=== PATIENT | female | born 1950 | race Caucasian/White ===

== ENCOUNTER 2018-08-06 18:40 | Emergency (ER) | payer MEDICARE, SELFPAY ==
[2018-08-06 19:00] VITALS: BP 148/87; PULSE 89; RESP 16; TEMP 36.6; O2SAT 99
--- NOTE | 2018-08-06 19:03 | ED_ITS ---
HPI - URI/Sore Throat <Joy Avendano PA-C - Last Filed: 08/06/18 22:04> General Chief Complaint: Upper Respiratory Symptoms Stated Complaint: coughing,wheezing Time Seen by Provider: 08/06/18 19:02 Source: patient Mode of arrival: ambulatory Limitations: no limitations History of Present Illness HPI Narrative: This 68-year-old female comes to ED secondary to persistent cough and wheeze. She states that last month, she was treated for pneumonia (she lives in [place]). She was feeling better, and came here to visit arriving 1 week ago today. She was feeling fine for the 1st couple of days, then started having productive cough again on Wednesday and friends noticed she had some wheeze on Wednesday. She states that she had some chills on Wednesday and maybe Wednesday, no temperatures taken. She was seen at a walk-in clinic on Wednesday and prescribed a Z-Bhargav and some codeine cough syrup. She also has an inhaler, but a chest x-ray was not done. She has continued to have cough and wheeze a nurse practitioner there advised her to have chest x-ray. She denies any sinus symptoms, sore throat, or congestion. She states that she is tolerating her usual walking and activity. She had a mitral valve repair in February and states she has slept elevated since then but does not feel like she has shortness of breath at night or like she has had to change her sleeping position. She states she gets a little bit of swelling in her legs but no changes, no new calf pain. She denies chest pain or other new symptoms today. Related Data Home Medications Medication Instructions Recorded Confirmed CALCIUM CARBONATE (Calcium 1,500 mg PO QDAY #0 12/31/10 Carbonate) FOLIC ACID/VIT A/VIT B1/VIT 1 tab PO QDAY #0 12/31/10 (#MULTIVITAMIN) VITAMIN D (Vitamin D3) 1,000 unit PO QDAY #0 12/31/10 Previous Rx's Medication Instructions Recorded lovastatin 40 mg PO QDAY #90 tab 12/19/15 triamterene-hydrochlorothiazid 1 cap PO QDAY #90 cap 12/19/15 [Dyazide] codeine-guaifenesin 5 ml PO Q4-6H PRN #120 ml 08/06/18 Allergies Allergy/AdvReac Type Severity Reaction Status Date / Time carisoprodol Allergy Mild Unverified 08/04/17 12:57 hydrocodone Allergy Mild HALLUCINATI Unverified 08/04/17 12:57 ONS hydroxyzine Allergy Mild Unverified 08/04/17 12:57 meperidine Allergy Mild HALLUCINATI Unverified 08/04/17 12:57 ONS Review of Systems <Joy Avendano PA-C - Last Filed: 08/06/18 22:04> Review of Systems ROS Unobtainable: All systems reviewed & are unremarkable except as noted in HPI and below PFSH <Joy Avendano PA-C - Last Filed: 08/06/18 22:04> Medical History (Updated 08/06/18 @ 20:29 by Joy Avendano PA-C) Bilateral lower extremity edema (Chronic) HTN (hypertension) (Chronic) Surgical History (Updated 08/06/18 @ 19:35 by Joy Avendano PA-C) H/O mitral valve repair (Chronic) History of cataract removal with insertion of prosthetic lens History of knee replacement History of spinal fusion History of tonsillectomy Status post colonoscopy Status post hysterectomy with oophorectomy Status post laminectomy Family History (Updated 09/30/14 @ 00:00 by Conversion Provider) Brother Coronary heart disease Brother Coronary heart disease Brother Colorectal cancer Heart disease Father Heart disease Hypertension Neck fracture Grandfather Heart disease Mother Dementia Heart disease Grandfather Heart disease Social History Smoking Status: Never smoker Family History (Updated 09/30/14 @ 00:00 by Conversion Provider) Brother Coronary heart disease Brother Coronary heart disease Brother Colorectal cancer Heart disease Father Heart disease Hypertension Neck fracture Grandfather Heart disease Mother Dementia Heart disease Grandfather Heart disease Social History Smoking Status: Never smoker Exam <Joy Avendano PA-C - Last Filed: 08/06/18 22:04> Narrative Exam Narrative: GENERAL APPEARANCE: Patient sitting comfortably, in no distress. HEAD: No sinus TTP. EYES: PERRL, EOMI. EARS: Normal auditory canals, TMS intact with normal light reflexes. ORAL CAVITY: Normal oropharynx. THROAT: Clear. NECK/THYROID: Neck supple, full range of motion, no cervical lymphadenopathy. LUNGS: Coarse breath sounds with generalized expiratory wheeze and intermittent hoarse cough on exam HEART: RRR without murmur, nl S1, S2, no S3 or S4. EXTREMITIES: Trace symmetric edema, varicosities noted, no calf tenderness Initial Vital Signs Initial Vital Signs: Vital Signs Temperature 97.8 F 08/06/18 19:00 Pulse Rate 89 08/06/18 19:00 Respiratory Rate 16 08/06/18 19:00 Blood Pressure 148/87 H 08/06/18 19:00 Pulse Oximetry 99 08/06/18 19:00 <Bryan García DO - Last Filed: 08/07/18 00:15> Initial Vital Signs Initial Vital Signs: Vital Signs Temperature 97.8 F 08/06/18 19:00 Pulse Rate 89 08/06/18 19:00 Respiratory Rate 16 08/06/18 19:00 Blood Pressure 148/87 H 08/06/18 19:00 Pulse Oximetry 99 08/06/18 19:00 Course <Joy Avendano PA-C - Last Filed: 08/06/18 22:04> Additional Information: Patient has persistent coarse cough, recent pneumonia. She has been using her inhaler up to q.i.d. as instructed but not as needed for cough or wheeze. She will increase that if needed. She will start prednisone for a few days for reactive airways and will follow up with her PCP next week when home. Discussed other potential sources, i.e. CHF, blood clot etc, but at this point based on her clinical condition and history those appear unlikely. She did agree to return if any new or acutely worsening symptoms prior to her return home Orders Ordered: ED Orders 08/06/18 19:28 XR chest 2V Stat Discontinued Medications Albuterol (Ventolin) 2.5 mg INH NOW ONE Stop: 08/06/18 19:30 Last Admin: 08/06/18 19:44 Dose: 2.5 mg Albuterol/Ipratropium (Duoneb) 3 ml INH NOW ONE Stop: 08/06/18 19:33 Last Admin: 08/06/18 19:36 Dose: 3 ml Ipratropium [place] (Atrovent Neb) 0.5 mg INH NOW ONE Stop: 08/06/18 19:30 Last Admin: 08/06/18 20:19 Dose: Not Given Prednisone (Deltasone 20 Mg Prepack) 1 bottle MIS SEEINSTR ONE Stop: 08/06/18 20:22 Last Admin: 08/06/18 20:37 Dose: 1 bottle Vital Signs - 8 hr 08/06/18 19:00 08/06/18 19:37 08/06/18 19:46 Temperature 97.8 F Pulse Rate 89 92 H 92 H Respiratory Rate 16 16 16 Blood Pressure 148/87 H Pulse Oximetry 99 95 95 08/06/18 20:16 Temperature Pulse Rate 94 H Respiratory Rate 18 Blood Pressure Pulse Oximetry 100 <Bryan García DO - Last Filed: 08/07/18 00:15> Orders Ordered: ED Orders 08/06/18 19:28 XR chest 2V Stat Discontinued Medications Albuterol (Ventolin) 2.5 mg INH NOW ONE Stop: 08/06/18 19:30 Last Admin: 08/06/18 19:44 Dose: 2.5 mg Albuterol/Ipratropium (Duoneb) 3 ml INH NOW ONE Stop: 08/06/18 19:33 Last Admin: 08/06/18 19:36 Dose: 3 ml Ipratropium [place] (Atrovent Neb) 0.5 mg INH NOW ONE Stop: 08/06/18 19:30 Last Admin: 08/06/18 20:19 Dose: Not Given Prednisone (Deltasone 20 Mg Prepack) 1 bottle MISC SEEINSTR ONE Stop: 08/06/18 20:22 Last Admin: 08/06/18 20:37 Dose: 1 bottle Vital Signs - 8 hr 08/06/18 19:00 08/06/18 19:37 08/06/18 19:46 Temperature 97.8 F Pulse Rate 89 92 H 92 H Respiratory Rate 16 16 16 Blood Pressure 148/87 H Pulse Oximetry 99 95 95 08/06/18 20:16 Temperature Pulse Rate 94 H Respiratory Rate 18 Blood Pressure Pulse Oximetry 100 Discharge Plan Departure Patient Disposition: Home Clinical Impression: Reactive airway disease with wheezing Qualifiers: Asthma severity: mild Asthma persistence: intermittent Asthma complication type: with acute exacerbation Qualified Code(s): J45.21 - Mild intermittent asthma with (acute) exacerbation Discharge Date/Time: 08/06/18 20:47 Interventions: ED Discharge Assessment Last Done: 08/06/18 20:46 Instructions: DI for Reactive Airway Disease-Adult Activity Restrictions/Additional Instructions: Your chest x-ray does not show a pneumonia or other acute problem today. I suspect that you have reactive airways, which is an asthma like reaction often with cough and wheezing that can follow a pneumonia or respiratory illness (it is also certainly possible that some of this is due to catching a new virus on your flight here or climate change). As we talked about, you should return right away if you have any acutely worsening symptoms or new symptoms such as difficulty breathing/walking, new swelling or pain in her legs, severe chest pain that is different from your sore chest that you have from your cough. Otherwise, please start the prednisone that we gave you, 40 mg once daily as this may calm down the inflammation in her lungs. Continue your albuterol inhaler, however you can use this every hour or 2 if you needed (use it as often as needed for cough, wheeze, or tight chest, use with the spacer in the respiratory therapist gave you). You can continue the cough syrup as needed. Prescriptions: New codeine-guaifenesin 10-100 mg/5 mL liquid 5 ml PO Q4-6H PRN (Reason: cough) Qty: 120 RF: 0 No Action FOLIC ACID/VIT A/VIT B1/VIT (#MULTIVITAMIN) 1 tab PO QDAY Qty: 0 RF: 0 VITAMIN D (Vitamin D3) 1,000 unit PO QDAY Qty: 0 RF: 0 CALCIUM CARBONATE (Calcium Carbonate) 1,500 mg PO QDAY Qty: 0 RF: 0 lovastatin 40 MG tablet 40 mg PO QDAY Qty: 90 RF: 0 triamterene-hydrochlorothiazid [Dyazide] 37.5 MG/25 MG capsule 1 cap PO QDAY Qty: 90 RF: 0 <Bryan García, - Last Filed: 08/07/18 00:15> [facility] Attending [place] Attestation: I was available for consultation during this patient's emergency department encounter
--- NOTE | 2018-08-06 19:28 | DI.RAD.S_ITS ---
PROCEDURE: XR CHEST 2V INDICATIONS: cough, wheeze, recent pneumonia TECHNIQUE: 2 views of the chest were acquired. COMPARISON: [facility], , CHEST 2 VIEW, 01/14/2007, 9:48. FINDINGS: Surgical changes and devices: Sternal wires and valve replacement are noted. Thoracolumbar fusion. Lungs and pleura: Lungs are clear. No pleural effusions or pneumothorax. Mediastinum: Mediastinal contours are normal. Heart size is normal. Bones and chest wall: No suspicious bony abnormalities. Soft tissues appear unremarkable. IMPRESSION: No acute pulmonary process. Dictated by: Ree Rasmussen M.D. on 08/06/2018 at 19:42 Approved by: Ree Rasmussen M.D. on 08/06/2018 at 19:43
[2018-08-06] MEDS: ALBUTEROL/IPRATROPIUM 3 ML AMPUL INH (19:36)
[2018-08-06 19:37] VITALS: PULSE 92; RESP 16; O2SAT 95
[2018-08-06] MEDS: ALBUTEROL 2.5 MG/3 ML NEB (ADULT) INH (19:44)
[2018-08-06 19:46] VITALS: PULSE 92; RESP 16; O2SAT 95
[2018-08-06 20:16] VITALS: PULSE 94; RESP 18; O2SAT 100
[2018-08-06] MEDS: predniSONE 20 MG PREPACK 1 BOTTLE MISC (20:37)
== END 2018-08-06 20:47 | disposition home or self-care (01) ==
PROVIDERS: Emergency Provider Internal Medicine; PCP Family Medicine
DX: J45.21 Mild intermittent asthma with (acute) exacerbation (principal)
CPT/HCPCS: 71046; 94640; 99282; 99284; J7613

== ENCOUNTER → 2025-03-02 09:30 | Outpatient (CLI) | payer MEDICARE, SELFPAY ==
[2025-03-02 11:01] LABS: Add Manual Diff / Slide Review NO; Hematocrit 40.2 % (36-46); Hemoglobin 13.9 g/dL (12.0-16.0); Lymphocytes Absolute Auto 600 /uL (1100-4500); Mean Corpuscular HGB Conc 34.6 % (30-36); Mean Corpuscular Hemoglobin 32.7 PG (26-34); Mean Corpuscular Volume 94.7 fL (80-100); Platelet Count 148 X10^3/uL (150-400)
[2025-03-02 11:11] LABS: Hemoglobin A1C% w Est Avg Glu 5.0 % (4.0-6.0)
[2025-03-02 11:45] LABS: Alanine Aminotransferase 15 IU/L (<35); Albumin 4.7 g/dL (3.5-5.0); Albumin Globulin Ratio 1.7 (1.0-2.8); Alkaline Phosphatase 73 U/L (38-126); Blood Urea Nitrogen 27 mg/dL (7-17); Calcium 10.0 mg/dL (8.4-10.2); Carbon Dioxide 26 mmol/L (22-32); Chloride 101 mmol/L (98-107); Estimated Glomerular Filt Rate 54 mL/min (>60); Globulin 2.7 g/dL (1.7-4.1); Glucose 95 mg/dL (70-99); HEMOLYSIS < 15 (0-50); Potassium 4.1 mmol/L (3.4-5.1); Sodium 138 mmol/L (137-145); Total Protein 7.4 g/dL (6.3-8.2)
[2025-03-02 12:15] LABS: TSH w/ Reflex to FT4 2.05 uIU/mL (0.47-4.68)
== END ==
PROVIDERS: PCP Family Medicine; Referring Provider Family Medicine; Visit Provider Family Medicine
DX: I10 Essential (primary) hypertension (principal); F51.01 Primary insomnia; Z96.652 Presence of left artificial knee joint
CPT/HCPCS: 36415; 80053; 83036; 84443; 85025

== ENCOUNTER → 2025-03-08 09:26 | Outpatient (CLI) | payer MEDICARE, SELFPAY | PROVIDERS: PCP Family Medicine; Referring Provider Family Medicine; Visit Provider Family Medicine | DX: I10 Essential (primary) hypertension (principal); F51.01 Primary insomnia; Z96.652 Presence of left artificial knee joint | CPT/HCPCS: 82274 ==